=== PATIENT | female | born 1945 | race Caucasian/White ===

== ENCOUNTER → 2023-11-07 11:10 | Outpatient (REF) | payer MEDICARE, OTHER, SELFPAY ==
[2023-11-07 11:46] LABS: % Basophils 0.3 % (0-2); % Eosinophils 1.6 % (0-6); % Immature Granulocytes 0.3 % (0-0.5); % Monocytes 11.5 % (1.7-9.3); % Neutrophils 38.3 % (42.2-75.2); Absolute Eosinophils 0.1 10^3/uL (0-0.7); Absolute Lymphocytes 1.5 10^3/uL (1.2-3.4); Absolute Monocytes 0.4 10^3/uL (0.1-0.6); Absolute Neutrophils 1.2 10^3/uL (1.4-6.5); Hematocrit 32.8 % (37.0-47.0); Hemoglobin 11.1 g/dL (12.0-16.0); Mean Corp Hgb Conc. 33.8 g/dL (33.0-37.0); Mean Corpuscular Hgb 31.2 pg (27.0-31.0); Mean Corpuscular Volume 92.1 fL (81.0-99.0); Mean Platelet Volume 11.4 fL (7.4-10.4); Nucleated Red Blood Cells % 0 %; Red Blood Cell Count 3.56 10^6/uL (4.20-5.40); Red Cell Dist. Width 14.7 % (11.5-14.5)
[2023-11-07 12:45] LABS: Platelet Count 126 10^3/uL (130-400)
== END ==
LOC: OLABN 11:10
PROVIDERS: ATTENDING PHYSICIAN Student in an Organized Health Care Education/Training Program
DX: D61.818 Other pancytopenia (principal)
CPT/HCPCS: 36415; 85025

== ENCOUNTER → 2023-11-14 10:37 | Outpatient (REF) | payer MEDICARE, OTHER, SELFPAY ==
[2023-11-14 11:00] LABS: % Basophils 0.5 % (0-2); % Eosinophils 1.5 % (0-6); % Immature Granulocytes 0.3 % (0-0.5); % Lymphocytes 47.3 % (20.5-51.1); % Monocytes 10.7 % (1.7-9.3); % Neutrophils 39.7 % (42.2-75.2); Absolute Eosinophils 0.1 10^3/uL (0-0.7); Absolute Lymphocytes 1.9 10^3/uL (1.2-3.4); Absolute Monocytes 0.4 10^3/uL (0.1-0.6); Absolute Neutrophils 1.6 10^3/uL (1.4-6.5); Hematocrit 31.8 % (37.0-47.0); Mean Corp Hgb Conc. 34.6 g/dL (33.0-37.0); Mean Corpuscular Hgb 31.5 pg (27.0-31.0); Mean Corpuscular Volume 91.1 fL (81.0-99.0); Mean Platelet Volume 11.4 fL (7.4-10.4); Nucleated Red Blood Cells % 0 %; Platelet Count 135 10^3/uL (130-400); Red Blood Cell Count 3.49 10^6/uL (4.20-5.40); Red Cell Dist. Width 14.5 % (11.5-14.5); White Blood Cell Count 3.9 10^3/uL (4.8-10.8)
== END ==
LOC: OLABN 10:37
PROVIDERS: ATTENDING PHYSICIAN Student in an Organized Health Care Education/Training Program
DX: D61.818 Other pancytopenia (principal)
CPT/HCPCS: 36415; 85025

== ENCOUNTER → 2023-12-10 10:37 | Outpatient (REF) | payer MEDICARE, OTHER, SELFPAY ==
[2023-12-10 11:36] LABS: % Basophils 0.7 % (0-2); % Eosinophils 1.6 % (0-6); % Immature Granulocytes 0.2 % (0-0.5); % Lymphocytes 50.9 % (20.5-51.1); % Monocytes 9.1 % (1.7-9.3); % Neutrophils 37.5 % (42.2-75.2); Absolute Eosinophils 0.1 10^3/uL (0-0.7); Absolute Lymphocytes 2.2 10^3/uL (1.2-3.4); Absolute Monocytes 0.4 10^3/uL (0.1-0.6); Absolute Neutrophils 1.6 10^3/uL (1.4-6.5); Hematocrit 34.8 % (37.0-47.0); Hemoglobin 11.8 g/dL (12.0-16.0); Mean Corp Hgb Conc. 33.9 g/dL (33.0-37.0); Mean Corpuscular Volume 91.3 fL (81.0-99.0); Mean Platelet Volume 11.2 fL (7.4-10.4); Nucleated Red Blood Cells % 0 %; Platelet Count 136 10^3/uL (130-400); Red Blood Cell Count 3.81 10^6/uL (4.20-5.40); Red Cell Dist. Width 14.8 % (11.5-14.5); White Blood Cell Count 4.4 10^3/uL (4.8-10.8)
== END ==
LOC: OLABN 10:37
PROVIDERS: ATTENDING PHYSICIAN Student in an Organized Health Care Education/Training Program
DX: D61.818 Other pancytopenia (principal)
CPT/HCPCS: 36415; 85025

== ENCOUNTER → 2023-12-12 09:47 | Outpatient (REF) | payer MEDICARE, OTHER, SELFPAY ==
[2023-12-12 11:35] LABS: % Basophils 0.5 % (0-2); % Eosinophils 1.4 % (0-6); % Lymphocytes 51.4 % (20.5-51.1); % Monocytes 11.1 % (1.7-9.3); % Neutrophils 35.6 % (42.2-75.2); Absolute Eosinophils 0.1 10^3/uL (0-0.7); Absolute Lymphocytes 1.9 10^3/uL (1.2-3.4); Absolute Monocytes 0.4 10^3/uL (0.1-0.6); Absolute Neutrophils 1.3 10^3/uL (1.4-6.5); Hematocrit 32.6 % (37.0-47.0); Hemoglobin 11.1 g/dL (12.0-16.0); Mean Corpuscular Hgb 30.8 pg (27.0-31.0); Mean Corpuscular Volume 90.6 fL (81.0-99.0); Mean Platelet Volume 11.6 fL (7.4-10.4); Nucleated Red Blood Cells % 0 %; Platelet Count 130 10^3/uL (130-400); Red Cell Dist. Width 14.4 % (11.5-14.5); White Blood Cell Count 3.7 10^3/uL (4.8-10.8)
== END ==
LOC: OLABN 09:47
PROVIDERS: ATTENDING PHYSICIAN Student in an Organized Health Care Education/Training Program
DX: D61.818 Other pancytopenia (principal); D70.9 Neutropenia, unspecified; D69.6 Thrombocytopenia, unspecified; D53.9 Nutritional anemia, unspecified
CPT/HCPCS: 36415; 85025

== ENCOUNTER → 2024-02-06 11:00 | Outpatient (REF) | payer MEDICARE, OTHER, SELFPAY ==
[2024-02-06 12:09] LABS: % Basophils 0.5 % (0-2); % Eosinophils 1.3 % (0-6); % Immature Granulocytes 0.3 % (0-0.5); % Lymphocytes 49.2 % (20.5-51.1); % Monocytes 11.1 % (1.7-9.3); % Neutrophils 37.6 % (42.2-75.2); Absolute Eosinophils 0.1 10^3/uL (0-0.7); Absolute Lymphocytes 1.9 10^3/uL (1.2-3.4); Absolute Monocytes 0.4 10^3/uL (0.1-0.6); Absolute Neutrophils 1.5 10^3/uL (1.4-6.5); Hematocrit 32.5 % (37.0-47.0); Mean Corp Hgb Conc. 33.8 g/dL (33.0-37.0); Mean Corpuscular Hgb 31.3 pg (27.0-31.0); Mean Corpuscular Volume 92.3 fL (81.0-99.0); Mean Platelet Volume 11.3 fL (7.4-10.4); Nucleated Red Blood Cells % 0 %; Platelet Count 152 10^3/uL (130-400); Red Blood Cell Count 3.52 10^6/uL (4.20-5.40); Red Cell Dist. Width 14.7 % (11.5-14.5); White Blood Cell Count 3.9 10^3/uL (4.8-10.8)
== END ==
LOC: OLABN 11:00
PROVIDERS: ATTENDING PHYSICIAN Student in an Organized Health Care Education/Training Program
DX: D53.9 Nutritional anemia, unspecified (principal); D61.818 Other pancytopenia; D70.9 Neutropenia, unspecified
CPT/HCPCS: 36415; 85025

== ENCOUNTER → 2024-04-09 09:45 | Outpatient (REF) | payer MEDICARE, OTHER, SELFPAY ==
[2024-04-09 12:12] LABS: % Basophils 0.2 % (0-2); % Eosinophils 1.2 % (0-6); % Immature Granulocytes 0.2 % (0-0.5); % Lymphocytes 49.6 % (20.5-51.1); % Monocytes 10.6 % (1.7-9.3); % Neutrophils 38.2 % (42.2-75.2); Absolute Eosinophils 0.1 10^3/uL (0-0.7); Absolute Lymphocytes 2.1 10^3/uL (1.2-3.4); Absolute Monocytes 0.4 10^3/uL (0.1-0.6); Absolute Neutrophils 1.6 10^3/uL (1.4-6.5); Hematocrit 33.2 % (37.0-47.0); Hemoglobin 10.9 g/dL (12.0-16.0); Mean Corp Hgb Conc. 32.8 g/dL (33.0-37.0); Mean Corpuscular Hgb 30.7 pg (27.0-31.0); Mean Corpuscular Volume 93.5 fL (81.0-99.0); Mean Platelet Volume 11.3 fL (7.4-10.4); Nucleated Red Blood Cells % 0 %; Platelet Count 136 10^3/uL (130-400); Red Blood Cell Count 3.55 10^6/uL (4.20-5.40); Red Cell Dist. Width 14.2 % (11.5-14.5); White Blood Cell Count 4.2 10^3/uL (4.8-10.8)
== END ==
LOC: OLABN 09:45
PROVIDERS: ATTENDING PHYSICIAN Student in an Organized Health Care Education/Training Program
DX: D61.818 Other pancytopenia (principal)
CPT/HCPCS: 36415; 85025

== ENCOUNTER → 2024-06-11 09:59 | Outpatient (REF) | payer MEDICARE, OTHER, SELFPAY ==
[2024-06-11 11:19] LABS: Hematocrit 31.9 % (37.0-47.0); Hemoglobin 10.6 g/dL (12.0-16.0); Mean Corp Hgb Conc. 33.2 g/dL (33.0-37.0); Mean Corpuscular Hgb 31.2 pg (27.0-31.0); Mean Corpuscular Volume 93.8 fL (81.0-99.0); Mean Platelet Volume 11.1 fL (7.4-10.4); Platelet Count 114 10^3/uL (130-400); Red Cell Dist. Width 14.5 % (11.5-14.5); White Blood Cell Count 3.3 10^3/uL (4.8-10.8)
[2024-06-11 12:40] LABS: % Basophils 0.6 % (0-2); % Eosinophils 3.7 % (0-6); % Immature Granulocytes 0.3 % (0-0.5); % Lymphocytes 55.8 % (20.5-51.1); % Monocytes 11.9 % (1.7-9.3); % Neutrophils 27.7 % (42.2-75.2); Absolute Eosinophils 0.1 10^3/uL (0-0.7); Absolute Lymphocytes 1.8 10^3/uL (1.2-3.4); Absolute Monocytes 0.4 10^3/uL (0.1-0.6); Absolute Neutrophils 0.9 10^3/uL (1.4-6.5); Nucleated Red Blood Cells % 0 %
== END ==
LOC: OLABN 09:59
PROVIDERS: ATTENDING PHYSICIAN Student in an Organized Health Care Education/Training Program
DX: D61.818 Other pancytopenia (principal); D70.9 Neutropenia, unspecified; D69.6 Thrombocytopenia, unspecified; D53.9 Nutritional anemia, unspecified
CPT/HCPCS: 36415; 85025

== ENCOUNTER → 2024-07-09 12:25 | Outpatient (REF) | payer MEDICARE, OTHER, SELFPAY ==
[2024-07-09 14:13] LABS: % Basophils 0.6 % (0-2); % Eosinophils 1.7 % (0-6); % Lymphocytes 47.5 % (20.5-51.1); % Monocytes 11.7 % (1.7-9.3); % Neutrophils 38.5 % (42.2-75.2); Absolute Eosinophils 0.1 10^3/uL (0-0.7); Absolute Lymphocytes 1.7 10^3/uL (1.2-3.4); Absolute Monocytes 0.4 10^3/uL (0.1-0.6); Absolute Neutrophils 1.4 10^3/uL (1.4-6.5); Hematocrit 34.2 % (37.0-47.0); Hemoglobin 11.1 g/dL (12.0-16.0); Mean Corp Hgb Conc. 32.5 g/dL (33.0-37.0); Mean Corpuscular Hgb 30.5 pg (27.0-31.0); Mean Platelet Volume 10.9 fL (7.4-10.4); Nucleated Red Blood Cells % 0 %; Platelet Count 141 10^3/uL (130-400); Red Blood Cell Count 3.64 10^6/uL (4.20-5.40); Red Cell Dist. Width 14.9 % (11.5-14.5); White Blood Cell Count 3.6 10^3/uL (4.8-10.8)
== END ==
LOC: OLABN 12:25
PROVIDERS: ATTENDING PHYSICIAN Student in an Organized Health Care Education/Training Program
DX: D61.818 Other pancytopenia (principal); D70.9 Neutropenia, unspecified; D69.6 Thrombocytopenia, unspecified; D53.9 Nutritional anemia, unspecified
CPT/HCPCS: 36415; 85025

== ENCOUNTER 2024-08-06 14:35 | Emergency (ER) | payer MEDICARE, OTHER, SELFPAY ==
[2024-08-06 14:44] VITALS: BP 170/79
[2024-08-06 14:48] LABS: Glucose - Point of Care 90 mg/dl (70-99)
[2024-08-06 15:12] LABS: % Basophils 0.4 % (0-2); % Eosinophils 1.1 % (0-6); % Immature Granulocytes 0.4 % (0-0.5); % Lymphocytes 23.1 % (20.5-51.1); % Monocytes 7.9 % (1.7-9.3); % Neutrophils 67.1 % (42.2-75.2); Absolute Eosinophils 0.1 10^3/uL (0-0.7); Absolute Lymphocytes 1.3 10^3/uL (1.2-3.4); Absolute Monocytes 0.4 10^3/uL (0.1-0.6); Absolute Neutrophils 3.7 10^3/uL (1.4-6.5); Hematocrit 35.8 % (37.0-47.0); Hemoglobin 12.2 g/dL (12.0-16.0); Mean Corp Hgb Conc. 34.1 g/dL (33.0-37.0); Mean Corpuscular Hgb 31.4 pg (27.0-31.0); Mean Platelet Volume 10.5 fL (7.4-10.4); Nucleated Red Blood Cells % 0 %; Platelet Count 144 10^3/uL (130-400); Red Blood Cell Count 3.89 10^6/uL (4.20-5.40); White Blood Cell Count 5.5 10^3/uL (4.8-10.8)
[2024-08-06 15:26] LABS: ALT (SGPT) 50 U/L (0-35); AST (SGOT) 53 U/L (14-36); Albumin 4.1 g/dl (3.5-5.0); Alkaline Phosphatase 175 U/L (38-126); Blood Urea Nitrogen 22 mg/dl (7-17); Calcium 9.8 mg/dl (8.4-10.2); Carbon Dioxide 30 mmol/L (22-30); Chloride 105 mmol/L (98-107); Glucose 83 mg/dl (70-99); Potassium 4.4 mmol/L (3.5-5.1); Sodium 143 mmol/L (135-145); Total Bilirubin 0.3 mg/dl (0.2-1.3); Total Protein 7.3 g/dl (6.3-8.2); eGFR > 60.00
[2024-08-06 16:25] LABS: Glucose - Point of Care 111 mg/dl (70-99)
--- NOTE | 2024-08-06 16:26 | ED.GENMED ---
History of Present Illness
General
Chief Complaint: Abnormal Lab Value
Source: patient and family (Daughter)
Exam Limitations: none
Time Seen by Provider: 08/06/24 16:05
Nursing documentation reviewed up to this point in time: agreed with
History of Present Illness
History of Present Illness:
79-year-old female with a past medical history of hypertension, irritable bowel syndrome, prior history of gastric bypass in 2003 who presents to the emergency room from [facility] accompanied by her daughter; she presents for
evaluation after episode of hypoglycemia. Patient reports that just before lunch today she began to get dizzy and felt sluggish; she was apparently with her daughter who noted that she was very withdrawn and lethargic, nursing staff was notified
and blood sugar was checked and it was apparently 39. She was given oral glucose and blood sugar quickly improved and her symptoms completely resolved. She was however sent to the emergency room to be evaluated after this episode as this is the
third episode of similar symptoms associated with hypoglycemia in the past month. All presents similarly and resolved with oral glucose. Patient here in the emergency room says that she feels well and denies any complaints. She has no history of
diabetes and does not take any medications to control blood glucose. She has not any recent adjustments to her medications. She reports a good appetite and has been eating well she says typically 3 large meals a day ('I think I eat too much').
She says that this morning for breakfast she had a peanut butter and jelly sandwich as well as a cup of yogurt and was just about to go for lunch before the episode today. She does deal with occasional diarrhea related to irritable bowel syndrome
and took some Imodium earlier today but has not had any other physical issues recently.
Past History
Past History
ED Past Medical History: HTN, Psychiatric (Generalized anxiety disorder ) and Other (Irritable bowel syndrome )
ED Past Surgical History: Gynecological (Hysterectomy), Tonsilectomy, Urological (Partial Nephrectomy) and Other (Gastric bipass)
Social History
Tobacco: Non-smoker
Alcohol: None
Personal:
Living: [facility]
Review of Systems
Review of Systems
All Other Systems: ROS reviewed and negative except as documented in HPI and ROS
Constitutional: Denies fever
Respiratory: Denies trouble breathing
Cardiac: Denies chest pain
ABD/GI: Reports diarrhea; Denies abdominal pain, nausea or vomiting
: Denies flank pain
Musculoskeletal: Denies neck pain or back pain
Neurological: Denies headache
Phy Exam
Physical Exam
Physical Exam:
General: Awake, alert, oriented x3; no acute distress
Head: Normocephalic, atraumatic
Eyes: Conjunctiva normal, sclera anicteric
Throat: Airway intact, handling secretions
Neck: Trachea midline, supple without meningismus
Lungs: Clear to auscultation bilaterally, no wheezing, rales, rhonchi
Heart: Regular rate and rhythm, no murmurs, gallops, or rubs
Abd: Soft, non distended, nontender
Neuro: No gross deficits
Skin: no rash
Extremities: Warm and well-perfused
Scores
Heart Failure Risk
Heart Failure Risk Score: Not Applicable
Heart Score for Chest Pain Patients
STEMI patient?: Not applicable
Withdrawal Assessment of Alcohol
Withdrawal Assessment Completed?: Not applicable
Course
Orders/Labs/Results
Orders:
Orders
08/06/24 14:53
CMP [Comprehensive Metabolic Panel] Urgent
Complete Blood Count/With Diff Urgent
08/06/24 16:06
Bedside Glucose- Treatment Q1H
08/06/24 16:39
C-Peptide [S] Urgent
Cortisol, Random Urgent
Abnormal Lab Results
08/06/24 08/06/24 08/06/24
14:53 16:24 18:42
RBC 3.89 L 10^6/uL
(4.20-5.40)
Hct 35.8 L %
(37.0-47.0)
MCH 31.4 H pg
(27.0-31.0)
RDW 15.0 H %
(11.5-14.5)
MPV 10.5 H fL
(7.4-10.4)
BUN 22 H mg/dl
(7-17)
AST 53 H U/L
(14-36)
ALT 50 H U/L
(0-35)
Alkaline Phosphatase 175 H U/L
(38-126)
POC Glucose 111 H mg/dl 206 H mg/dl
(70-99) (70-99)
08/06/24 14:53
08/06/24 14:53
Vital Signs
Initial and Last Documented VS:
Initial Vital Signs
Temp Pulse Resp BP Pulse Ox
36.7 C 54 20 170/79 96
08/06/24 14:44 08/06/24 14:44 08/06/24 14:44 08/06/24 14:44 08/06/24 14:44
Last Documented Vital Signs
Temp Pulse Resp BP Pulse Ox
36.7 C 54 20 170/79 96
08/06/24 14:44 08/06/24 14:44 08/06/24 14:44 08/06/24 14:44 08/06/24 14:44
MDM/Problems Addressed
Differential Diagnosis Includes:
Recurrent hypoglycemia in nondiabetic patient: Differential would include adrenal insufficiency, poor p.o. intake, malignancy, factitious hypoglycemia; reviewed medication list and no high risk medications for hypoglycemia and she denies any history
of alcohol use
MDM/Problems Addressed:
79-year-old female presents to the ER for evaluation of hypoglycemia�has had 3 episodes of significant hypoglycemia this month that respond well to oral glucose. Blood glucose this morning was apparently 39. Accu-Chek on arrival shows glucose of
90. She is awake and alert and asymptomatic. She says she ate a full breakfast this morning. She is not on any medications to control blood glucose and has no diabetes history. Reviewed medication list and no high risk medications for
hypoglycemia otherwise. Denies history of alcohol use. Will send basic labs and a CBC and a CMP, C-peptide, A1c, cortisol level. Case discussed with endocrinology who agrees with workup as above. Repeat glucose regularly while monitoring in the
ER.
Labs reviewed: CBC unremarkable, CMP no clinically significant abnormalities. Random cortisol levels normal. Continue to monitor Accu-Chek. Patient's vitals have been stable and Accu-Cheks thus far have been stable.
Patient observed here for 4+ hours and remains awake and alert and asymptomatic throughout the entirety of her ED stay. She did tolerate food here by mouth. Her glucose did spike up quite high after eating to a peak value of 206 which is
suggestive of diagnosis of underlying diabetes. I had a long discussion with the patient and her daughter who is at the bedside. She has been persistently symptomatic and she does not wish to stay in the hospital. I did offer to admit her for
monitoring of her glucose and to have telehealth nurse educator see her however she says that she is in the [facility] in a monitored setting and feels comfortable going home. Daughter feels comfortable with this as well. I did call the [facility]
staff and inform nurses of findings here and concern for potentially underlying diabetes. They will have her follow-up with the physician there within the next 48 hours and I advised them to watch her blood sugars closely over the next 48 hours as
well. They are in agreement with this plan. In keeping with patient's wishes we will discharge her back to [facility]. All questions answered.
*Pulse Oximetry
Patient hypoxic: no
*Critical Care Note
Total Time (30-74mins, 75-104mins- exclusive of procedures): Not Applicable
Data Reviewed
Source: patient, family and ambulance crew
Patient Management
Discussion with other providers: Security Assurance Analyst (Discussed with endocrinology) and senior living staff (Spoke directly with [facility] staff)
Escalation/DeEscalation of care consider admission/obs:
Offered admission�using shared decision making discharge back to [facility]
ED Attending Note
-
Portions of this chart may have been created with voice recognition software.� Occasional wrong word or��sound alike� substitutions may have occurred due to the inherent limitations of voice recognition software.
Discharge Plan
Departure
Patient Disposition: Home (Routine Discharge)
Date of Disposition: 08/06/24
Time of Disposition: 19:35
Patient with high blood pressure during this ER visit?: Yes
Discharge Problem:
Hypoglycemia, Diabetes
Instructions: The ABCs of diabetes, Low Blood Sugar, Adult ED
Prescriptions:
No Action
calcium 500 MG tablet
500 mg PO DAILY
alprazolam 0.5 MG tablet
0.5 mg PO BID PRN (Reason: anxiety)
hyoscyamine sulfate [Levsin/SL] 0.125 MG tablet, sublingual
0.125 mg sublingual QID PRN (Reason: bowels symptom)
metoprolol tartrate 50 MG tablet
50 mg PO BID
Patient Comments:
2tab in AM and 1tab in PM
magnesium oxide 250 MG tablet
250 mg PO DAILY
solifenacin 5 MG tablet
10 mg PO DAILY
multivitamin with folic acid [Tab-A-Lucas] 1 TABLET tablet
1 tab PO DAILY
Clonazepam
1 tab PO HS
azithromycin 250 MG tablet
250 mg PO DAILY Qty: 4 0RF
albuterol sulfate 90 MCG/PUFF HFA aerosol inhaler
1 puff inhalation R Q4HPRN PRN (Reason: cough, SOB) Qty: 1 0RF
Referrals:
Ousmane Lobato DO [Family Provider] - Follow up in 2-3 days
Activity Restrictions/Additional Instructions:
Thank you for visiting the Emergency Department at [facility].
1. Please schedule a follow up appointment as directed. Call first thing tomorrow morning to make an appointment.
2. If indicated, please take your medications as instructed and indicated on discharge paperwork.
3. If any of your symptoms do not improve, or persist, or become more severe within 6-12 hours, please return to the emergency department for further care.
4. Please return to the emergency department if you develop a headache, neck pain/stiffness, fever greater than 100.4F, chest pain, shortness of breath, persistent nausea, vomiting, slurred speech, difficulty walking, numbness/tingling, weakness,
signs of infection or any other symptoms that are worrisome to you.
Please call [phone] if you have any questions.
Interventions
Interventions:
*General Assessment Last Done: 08/06/24 14:44
Discharge Date and Time
Print Language: URDU
[2024-08-06 16:37] VITALS: BMI 30.2
[2024-08-06 17:41] LABS: Cortisol, Random 3.5 ug/dl
[2024-08-06 18:43] LABS: Glucose - Point of Care 206 mg/dl (70-99)
[2024-08-06 19:40] LABS: Glucose - Point of Care 160 mg/dl (70-99)
[2024-08-06 19:48] VITALS: BP 140/87
[2024-08-08 15:37] LABS: C-Peptide 2.3 ng/mL (0.5-3.3)
== END 2024-08-06 20:12 | disposition home or self-care (01) ==
LOC: EMR 14:35
PROVIDERS: Student in an Organized Health Care Education/Training Program; EMERGENCY PHYSICIAN Emergency Medicine; FAMILY PHYSICIAN Student in an Organized Health Care Education/Training Program
DX: E11.649 Type 2 diabetes mellitus with hypoglycemia without coma (principal); I10 Essential (primary) hypertension; K58.0 Irritable bowel syndrome with diarrhea; F41.1 Generalized anxiety disorder; Z98.84 Bariatric surgery status; Z90.5 Acquired absence of kidney; Z88.5 Allergy status to narcotic agent; Z88.2 Allergy status to sulfonamides; Z88.8 Allergy status to other drugs, medicaments and biological substances
CPT/HCPCS: 99283; 80053; 82533; 82962; 84681; 85025

== ENCOUNTER → 2024-08-13 13:56 | Outpatient (REF) | payer MEDICARE, OTHER, SELFPAY ==
[2024-08-13 14:48] LABS: % Basophils 0.5 % (0-2); % Lymphocytes 49.3 % (20.5-51.1); % Monocytes 12.1 % (1.7-9.3); % Neutrophils 35.1 % (42.2-75.2); Absolute Eosinophils 0.1 10^3/uL (0-0.7); Absolute Lymphocytes 1.8 10^3/uL (1.2-3.4); Absolute Monocytes 0.5 10^3/uL (0.1-0.6); Absolute Neutrophils 1.3 10^3/uL (1.4-6.5); Hematocrit 32.6 % (37.0-47.0); Hemoglobin 10.9 g/dL (12.0-16.0); Mean Corp Hgb Conc. 33.4 g/dL (33.0-37.0); Mean Corpuscular Hgb 31.1 pg (27.0-31.0); Mean Corpuscular Volume 93.1 fL (81.0-99.0); Mean Platelet Volume 10.9 fL (7.4-10.4); Nucleated Red Blood Cells % 0 %; Platelet Count 133 10^3/uL (130-400); White Blood Cell Count 3.7 10^3/uL (4.8-10.8)
== END ==
LOC: OLABN 13:56
PROVIDERS: ATTENDING PHYSICIAN Student in an Organized Health Care Education/Training Program
DX: D61.818 Other pancytopenia (principal); D70.9 Neutropenia, unspecified; D69.6 Thrombocytopenia, unspecified; D53.9 Nutritional anemia, unspecified
CPT/HCPCS: 36415; 85025

== ENCOUNTER → 2024-09-10 10:06 | Outpatient (REF) | payer MEDICARE, OTHER, SELFPAY ==
[2024-09-10 12:29] LABS: % Basophils 0.6 % (0-2); % Eosinophils 2.9 % (0-6); % Immature Granulocytes 0.2 % (0-0.5); % Lymphocytes 43.1 % (20.5-51.1); % Monocytes 10.1 % (1.7-9.3); % Neutrophils 43.1 % (42.2-75.2); Absolute Eosinophils 0.1 10^3/uL (0-0.7); Absolute Lymphocytes 2.1 10^3/uL (1.2-3.4); Absolute Monocytes 0.5 10^3/uL (0.1-0.6); Absolute Neutrophils 2.1 10^3/uL (1.4-6.5); Hematocrit 36.2 % (37.0-47.0); Hemoglobin 11.6 g/dL (12.0-16.0); Mean Corpuscular Hgb 30.4 pg (27.0-31.0); Mean Platelet Volume 11.3 fL (7.4-10.4); Nucleated Red Blood Cells % 0 %; Platelet Count 167 10^3/uL (130-400); Red Blood Cell Count 3.81 10^6/uL (4.20-5.40); Red Cell Dist. Width 14.9 % (11.5-14.5); White Blood Cell Count 4.9 10^3/uL (4.8-10.8)
== END ==
LOC: OLABN 10:06
PROVIDERS: ATTENDING PHYSICIAN Student in an Organized Health Care Education/Training Program
DX: D61.818 Other pancytopenia (principal); D70.9 Neutropenia, unspecified; D69.9 Hemorrhagic condition, unspecified; D53.9 Nutritional anemia, unspecified
CPT/HCPCS: 36415; 85025

== ENCOUNTER → 2024-10-10 12:24 | Outpatient (REF) | payer MEDICARE, OTHER, SELFPAY ==
[2024-10-10 14:27] LABS: Glycohemoglobin (HgbA1c) 5.5 % (4.0-5.6)
== END ==
LOC: OLABN 12:24
PROVIDERS: ATTENDING PHYSICIAN Student in an Organized Health Care Education/Training Program
DX: E16.2 Hypoglycemia, unspecified (principal)
CPT/HCPCS: 36415; 83036

== ENCOUNTER → 2024-11-19 11:03 | Outpatient (REF) | payer MEDICARE, OTHER, SELFPAY ==
[2024-11-19 12:19] LABS: Glucose 78 mg/dl (70-99)
[2024-11-21 23:05] LABS: Insulin, Random 3 uIU/mL
[2024-11-21 23:44] LABS: C-Peptide 1.7 ng/mL (0.5-3.3)
== END ==
LOC: OLABN 11:03
PROVIDERS: ATTENDING PHYSICIAN Student in an Organized Health Care Education/Training Program
DX: E16.2 Hypoglycemia, unspecified (principal)
CPT/HCPCS: 36415; 82947; 83525; 84681

== ENCOUNTER → 2024-12-15 09:50 | Outpatient (REF) | payer MEDICARE, OTHER, SELFPAY ==
[2024-12-15 12:21] LABS: Glucose 66 mg/dl (70-99)
== END ==
LOC: OLABN 09:50
PROVIDERS: ATTENDING PHYSICIAN Student in an Organized Health Care Education/Training Program
DX: E16.2 Hypoglycemia, unspecified (principal)
CPT/HCPCS: 36415; 82947

== ENCOUNTER → 2024-12-29 08:36 | Outpatient (REF) | payer MEDICARE, OTHER, SELFPAY ==
[2024-12-29 09:14] LABS: % Basophils 0.2 % (0-2); % Eosinophils 0.5 % (0-6); % Immature Granulocytes 0.3 % (0-0.5); % Lymphocytes 22.5 % (20.5-51.1); % Monocytes 4.4 % (1.7-9.3); % Neutrophils 72.1 % (42.2-75.2); Absolute Lymphocytes 1.5 10^3/uL (1.2-3.4); Absolute Monocytes 0.3 10^3/uL (0.1-0.6); Absolute Neutrophils 4.7 10^3/uL (1.4-6.5); Hematocrit 39.7 % (37.0-47.0); Mean Corp Hgb Conc. 32.7 g/dL (33.0-37.0); Mean Corpuscular Hgb 30.3 pg (27.0-31.0); Mean Corpuscular Volume 92.5 fL (81.0-99.0); Mean Platelet Volume 11.4 fL (7.4-10.4); Nucleated Red Blood Cells % 0 %; Platelet Count 109 10^3/uL (130-400); Red Blood Cell Count 4.29 10^6/uL (4.20-5.40); Red Cell Dist. Width 15.2 % (11.5-14.5); White Blood Cell Count 6.5 10^3/uL (4.8-10.8)
[2024-12-29 10:13] LABS: NT-proBNP 2290 pg/ml
[2024-12-29 12:38] LABS: Blood Urea Nitrogen 33 mg/dl (7-17); Calcium 9.3 mg/dl (8.4-10.2); Carbon Dioxide 29 mmol/L (22-30); Chloride 107 mmol/L (98-107); Glucose 80 mg/dl (70-99); Potassium 3.8 mmol/L (3.5-5.1); Sodium 147 mmol/L (135-145); eGFR > 60.00
== END ==
LOC: OLABN 08:36
PROVIDERS: ATTENDING PHYSICIAN Student in an Organized Health Care Education/Training Program
DX: R06.2 Wheezing (principal)
CPT/HCPCS: 36415; 80048; 83880; 85025

== ENCOUNTER → 2025-02-13 10:29 | Outpatient (REF) | payer MEDICARE, OTHER, SELFPAY ==
[2025-02-13 12:46] LABS: Blood Urea Nitrogen 28 mg/dl (7-17); Calcium 8.9 mg/dl (8.4-10.2); Carbon Dioxide 33 mmol/L (22-30); Chloride 104 mmol/L (98-107); Glucose 72 mg/dl (70-99); Magnesium 1.8 mg/dl (1.6-2.3); Potassium 3.6 mmol/L (3.5-5.1); Sodium 144 mmol/L (135-145); eGFR > 60.00
== END ==
LOC: OLABN 10:29
PROVIDERS: ATTENDING PHYSICIAN Student in an Organized Health Care Education/Training Program
DX: I89.0 Lymphedema, not elsewhere classified (principal)
CPT/HCPCS: 36415; 80048; 83735

== ENCOUNTER → 2025-05-08 13:45 | Outpatient (REF) | payer MEDICARE, OTHER, SELFPAY ==
[2025-05-09 11:09] LABS: Urine Character Slightly Cloudy (Clear)
[2025-05-09 11:10] LABS: Urine White Cell >100 /HPF (0-5)
== END ==
LOC: OLABN 13:45
PROVIDERS: ATTENDING PHYSICIAN Student in an Organized Health Care Education/Training Program
DX: R35.0 Frequency of micturition (principal)
CPT/HCPCS: 81003; 81015; 87086

== ENCOUNTER → 2025-05-09 08:07 | Outpatient (REF) | payer MEDICARE, OTHER, SELFPAY ==
[2025-05-09 10:04] LABS: Albumin 3.4 g/dl (3.5-5.0); Carbon Dioxide 32 mmol/L (22-30); Total Protein 6.7 g/dl (6.3-8.2); eGFR > 60.00
[2025-05-09 10:06] LABS: Hematocrit 34.6 % (37.0-47.0); Hemoglobin 11.3 g/dL (12.0-16.0); Mean Corp Hgb Conc. 32.7 g/dL (33.0-37.0); Mean Corpuscular Volume 91.8 fL (81.0-99.0); Nucleated Red Blood Cells % 0 %; Platelet Count 120 10^3/uL (130-400); Red Cell Dist. Width 15.2 % (11.5-14.5)
[2025-05-09 10:15] LABS: ALT (SGPT) 37 U/L (0-35); AST (SGOT) 43 U/L (14-36); Alkaline Phosphatase 188 U/L (38-126); Blood Urea Nitrogen 26 mg/dl (7-17); Calcium 8.8 mg/dl (8.4-10.2); Chloride 110 mmol/L (98-107); Glucose 71 mg/dl (70-99); Magnesium 1.6 mg/dl (1.6-2.3); Potassium 4.0 mmol/L (3.5-5.1); Sodium 143 mmol/L (135-145)
== END ==
LOC: OLABN 08:07
PROVIDERS: ATTENDING PHYSICIAN Student in an Organized Health Care Education/Training Program
DX: I10 Essential (primary) hypertension (principal)
CPT/HCPCS: 36415; 80053; 83735; 85025

== ENCOUNTER → 2025-05-13 09:55 | Outpatient (REF) | payer MEDICARE, OTHER, SELFPAY ==
[2025-05-13 12:37] LABS: Hematocrit 33.8 % (37.0-47.0); Hemoglobin 11.1 g/dL (12.0-16.0); Mean Corp Hgb Conc. 32.8 g/dL (33.0-37.0); Mean Corpuscular Volume 91.8 fL (81.0-99.0); Nucleated Red Blood Cells % 0 %; Platelet Count 111 10^3/uL (130-400); Red Cell Dist. Width 14.9 % (11.5-14.5)
== END ==
LOC: OLABN 09:55
PROVIDERS: ATTENDING PHYSICIAN Student in an Organized Health Care Education/Training Program
DX: I10 Essential (primary) hypertension (principal)
CPT/HCPCS: 36415; 85025

== ENCOUNTER → 2025-07-08 12:14 | Outpatient (REF) | payer MEDICARE, OTHER, SELFPAY ==
[2025-07-08 13:00] LABS: Hematocrit 33.8 % (37.0-47.0); Hemoglobin 11.2 g/dL (12.0-16.0); Mean Corp Hgb Conc. 33.1 g/dL (33.0-37.0); Mean Corpuscular Volume 91.4 fL (81.0-99.0); Nucleated Red Blood Cells % 0 %; Platelet Count 126 10^3/uL (130-400); Red Cell Dist. Width 16.0 % (11.5-14.5)
== END ==
LOC: OLABN 12:14
PROVIDERS: ATTENDING PHYSICIAN Student in an Organized Health Care Education/Training Program
DX: D61.818 Other pancytopenia (principal); D70.9 Neutropenia, unspecified; D69.6 Thrombocytopenia, unspecified; D53.9 Nutritional anemia, unspecified
CPT/HCPCS: 85025

== ENCOUNTER → 2025-08-14 18:45 | Outpatient (REF) | payer MEDICARE, OTHER, SELFPAY ==
[2025-08-15 09:44] LABS: Urine Character Slightly Cloudy (Clear)
[2025-08-15 10:51] LABS: Urine Squamous Cell 26-30 /LPF (Few)
[2025-08-15 10:53] LABS: Urine Red Blood Cell 16-20 /HPF (0-2); Urine White Cell 40-50 /HPF (0-5)
== END ==
LOC: OLABN 18:45
PROVIDERS: ATTENDING PHYSICIAN Student in an Organized Health Care Education/Training Program
DX: R35.0 Frequency of micturition (principal)
CPT/HCPCS: 81003; 81015; 87086

== ENCOUNTER → 2025-08-17 09:45 | Outpatient (REF) | payer MEDICARE, OTHER, SELFPAY ==
[2025-08-17 10:53] LABS: Hematocrit 36.7 % (37.0-47.0); Hemoglobin 11.4 g/dL (12.0-16.0); Mean Corp Hgb Conc. 31.1 g/dL (33.0-37.0); Mean Corpuscular Volume 93.1 fL (81.0-99.0); Nucleated Red Blood Cells % 0 %; Platelet Count 109 10^3/uL (130-400); Red Cell Dist. Width 16.2 % (11.5-14.5)
[2025-08-17 11:01] LABS: ALT (SGPT) 26 U/L (0-35); AST (SGOT) 30 U/L (14-36); Albumin 3.6 g/dl (3.5-5.0); Alkaline Phosphatase 170 U/L (38-126); Blood Urea Nitrogen 22 mg/dl (7-17); Calcium 9.0 mg/dl (8.4-10.2); Chloride 108 mmol/L (98-107); Glucose 83 mg/dl (70-99); Magnesium 1.6 mg/dl (1.6-2.3); Potassium 3.7 mmol/L (3.5-5.1); Sodium 142 mmol/L (135-145); Total Protein 6.6 g/dl (6.3-8.2); eGFR > 60.00
[2025-08-17 11:10] LABS: Carbon Dioxide 30 mmol/L (22-30)
== END ==
LOC: OLABN 09:45
PROVIDERS: ATTENDING PHYSICIAN Student in an Organized Health Care Education/Training Program
DX: I50.32 Chronic diastolic (congestive) heart failure (principal)
CPT/HCPCS: 36415; 80053; 83735; 83880; 85025

== ENCOUNTER → 2025-09-09 10:41 | Outpatient (REF) | payer MEDICARE, OTHER, SELFPAY ==
[2025-09-09 11:42] LABS: Hematocrit 34.4 % (37.0-47.0); Hemoglobin 11.4 g/dL (12.0-16.0); Mean Corp Hgb Conc. 33.1 g/dL (33.0-37.0); Mean Corpuscular Volume 90.8 fL (81.0-99.0); Nucleated Red Blood Cells % 0 %; Platelet Count 98 10^3/uL (130-400); Red Cell Dist. Width 15.9 % (11.5-14.5)
== END ==
LOC: OLABN 10:41
PROVIDERS: ATTENDING PHYSICIAN Student in an Organized Health Care Education/Training Program
DX: D61.818 Other pancytopenia (principal); D70.9 Neutropenia, unspecified; D69.6 Thrombocytopenia, unspecified; D53.9 Nutritional anemia, unspecified
CPT/HCPCS: 36415; 85025

== ENCOUNTER → 2025-09-14 15:38 | Outpatient (REF) | payer MEDICARE, OTHER, SELFPAY ==
[2025-09-14 16:18] LABS: ALT (SGPT) 31 U/L (0-35); AST (SGOT) 31 U/L (14-36); Albumin 4.2 g/dl (3.5-5.0); Alkaline Phosphatase 216 U/L (38-126); Blood Urea Nitrogen 20 mg/dl (7-17); Calcium 9.2 mg/dl (8.4-10.2); Carbon Dioxide 29 mmol/L (22-30); Chloride 102 mmol/L (98-107); Glucose 58 mg/dl (70-99); Magnesium 1.6 mg/dl (1.6-2.3); Potassium 4.2 mmol/L (3.5-5.1); Sodium 138 mmol/L (135-145); Total Protein 7.9 g/dl (6.3-8.2); eGFR > 60.00
[2025-09-14 16:22] LABS: Hematocrit 39.6 % (37.0-47.0); Hemoglobin 12.9 g/dL (12.0-16.0); Mean Corp Hgb Conc. 32.6 g/dL (33.0-37.0); Mean Corpuscular Volume 89.0 fL (81.0-99.0); Nucleated Red Blood Cells % 0 %; Platelet Count 125 10^3/uL (130-400); Red Cell Dist. Width 16.1 % (11.5-14.5)
== END ==
LOC: OLABN 15:38
PROVIDERS: ATTENDING PHYSICIAN Student in an Organized Health Care Education/Training Program
DX: B34.9 Viral infection, unspecified (principal)
CPT/HCPCS: 36415; 80053; 83735; 85025